=== PATIENT | female | born 1955 | race African-American/Black ===

== ENCOUNTER 2024-05-31 13:07 | Emergency (ER) | payer OTHER ==
[2024-05-31 13:16] VITALS: BP 129/56; PULSE 87; RESP 18; TEMP 97.9; BMI 35.9
[2024-05-31] MEDS ORDERED: ACETAMINOPHEN 500 MG TABLET (FP) ONE (14:13)
[2024-05-31] MEDS: ACETAMINOPHEN 500 MG TABLET (FP) PO ONE (14:15)
== END 2024-05-31 16:45 | disposition home or self-care (01) ==
LOC: JER 13:07 → JERFT 13:07
DX: S92.354A Nondisplaced fracture of fifth metatarsal bone, right foot, initial encounter for closed fracture (principal); X50.1XXA Overexertion from prolonged static or awkward postures, initial encounter
CPT/HCPCS: 73610-TC-RT-FY; 73630-TC-RT-FY; 99283-25